=== PATIENT | female | born 1990 | race Two or more races ===

== ENCOUNTER 2025-04-04 00:54 | Emergency (ER) | payer OTHER ==
[~2025-04-04] VITALS: Ht 165.1 cm; Wt 68.0 kg
[2025-04-04 01:24] VITALS: BP 119/78; O2SAT 100
[2025-04-04] MEDS ORDERED: FAMOTIDINE/PF 20 MG/2 ML VIAL IV PUSH STA (01:29)
[2025-04-04] MEDS ORDERED: 0.9 % SODIUM CHLORIDE 1,000 ML IV ONE (01:30)
[2025-04-04] MEDS ORDERED: FAMOTIDINE/PF 20 MG/2 ML VIAL ONE (01:54)
[2025-04-04 02:18] LABS: BASO % 0.3 % (0.1-1.2); EOS # 0.01 (0.04-0.54); EOS % 0.2 % (0.7-7.0); LYMPH # 1.10 (1.18-3.74); LYMPH % 18.7 % (19.3-53.1); MEAN PLATELET VOLUME 11.40 fl (9.4-12.4); MONO # 0.52 (0.24-0.82); MONO % 8.9 % (4.7-12.5); NEUT # 4.21 (1.56-6.13); NEUT % 71.7 % (34.0-71.1); RED CELL DISTRIBUTION WIDTH 18.6 % (11.6-14.4)
[2025-04-04 02:26] LABS: BUN CREA RATIO 15.0 (7.0-25.0); CREATININE SERUM 1.02 mg/dL (0.55-1.02); GFR 61.67; GLUCOSE FASTING 105.0 mg/dL (65-100); OSMOLALITY SERUM 284.0 MOSM/KG (275-295)
[2025-04-04] MEDS ORDERED: FAMOTIDINE40 MG PO (07:31)
[2025-04-04] MEDS ORDERED: ZOFRAN8 MG PO (07:31)
== END 2025-04-04 08:01 | disposition left against medical advice (07) ==
LOC: ER 00:54
PROVIDERS: General Practice
DX: F12.929 Cannabis use, unspecified with intoxication, unspecified (principal); F10.929 Alcohol use, unspecified with intoxication, unspecified; Z91.048 Other nonmedicinal substance allergy status